=== PATIENT | male | born 1945 | race Caucasian/White ===

== ENCOUNTER 2019-10-28 12:08 | Outpatient (CLI) | payer MEDICARE, OTHER ==
--- NOTE | 2019-10-28 14:36 | RAD ---
KUB: 10/28/19 HISTORY: Lower abdominal pain, constipation. There is a slightly dilated mid abdominal small bowel loop. This does not appear to represent colon a nd may represent some type of ventral hernia. The colon appears nondistended. Vascular calcifications are noted. Arthritic changes of the spine are seen. IMPRESSION: Distended mid abdominal bowel loop which is felt to represent a small bowel loop as it does not appea r to be colon and does not appear to be sigmoid colon. There may be some type of ventral hernia prese nt. There is suggestion there may be some wall edema associated with this. CT would be suggested for further assessment. These findings were discussed with Dr. Grant. [place] [facility] [place]
== END 2019-10-28 12:09 | disposition home or self-care (01) ==
LOC: BICRAD 12:08
PROVIDERS: ATTEND Internal Medicine Gastroenterology
DX: K59.00 Constipation, unspecified (principal); R10.30 Lower abdominal pain, unspecified; R19.8 Other specified symptoms and signs involving the digestive system and abdomen
CPT/HCPCS: 74018